=== PATIENT | female | born 1960 | race Caucasian/White ===

== ENCOUNTER 2021-10-12 09:30 | Inpatient (IN) | payer BC ==
[2021-10-17] MEDS ORDERED: Midazolam HCl 2 mg/2 ml Vial ONE ×2 (10:29→11:23)
[2021-10-17] MEDS ORDERED: Fentanyl 100 MCG/2 ML VIAL ONE ×5 (10:30→15:01)
[2021-10-17] MEDS ORDERED: Scopolamine 1.5 mg/72 hour Patch ONE (10:37)
[2021-10-17] MEDS ORDERED: cefOXitin 2 GM VIAL ONE (11:53)
[2021-10-17] MEDS ORDERED: Sodium Chloride 0.9% 100 ML ONE (11:53)
[2021-10-17] MEDS ORDERED: Glycopyrrolate 0.2 MG/ML 5 ML SYRINGE ONE (11:56)
[2021-10-17] MEDS ORDERED: Ondansetron PF 4 MG/2 ML Vial ONE (11:56)
[2021-10-17] MEDS ORDERED: Lidocaine 1% PF 5 ML VIAL ONE (11:56)
[2021-10-17] MEDS ORDERED: PHENYLEPHRINE-NS 100 MCG/ML 10 ML SYRINGE ONE (11:56)
[2021-10-17] MEDS ORDERED: Dexamethasone 20 MG/5 ML VIAL ONE (11:56)
[2021-10-17] MEDS ORDERED: Rocuronium Bromide 10 MG/ML (10ML VIAL) ONE (11:56)
[2021-10-17] MEDS ORDERED: PROPOFOL 200 MG/20 ML VIAL ONE (11:56)
[2021-10-17] MEDS ORDERED: Bupivacaine HCl 0.5%/Epinephrine 1:200,000/PF 30 ml Vial ONE (11:56)
[2021-10-17] MEDS ORDERED: Meperidine HCl/PF 25 MG/ML VIAL SLOW IVP PRN (13:07)
[2021-10-17] MEDS ORDERED: Promethazine HCl 25 MG/ML VIAL IM PRN ×2 (13:07→13:58)
[2021-10-17] MEDS ORDERED: Promethazine HCl 25 MG/ML VIAL IVPB PRN (13:07)
[2021-10-17] MEDS ORDERED: Ondansetron HCl/PF 4 MG/2 ML Vial IVP PRN (13:07)
[2021-10-17] MEDS ORDERED: Ondansetron PF 4 MG/2 ML Vial IVP PRN (13:58)
[2021-10-17] MEDS ORDERED: Acetaminophen 325 MG TAB PO PRN (13:58)
[2021-10-17] MEDS ORDERED: hydrALAZINE 20 MG/ML VIAL SLOW IVP PRN (13:58)
[2021-10-17] MEDS: D5 1/2 NS w/20 mEq KCL 1,000 ML IV SCH (15:42)
[2021-10-17 15:50] VITALS: BMI 23.1
[2021-10-17] MEDS: diphenhydrAMINE 25 MG CAP PO PRN (17:31)
[2021-10-17] MEDS: Famotidine/PF 20 mg/2ml Vial SLOW IVP SCH (19:59)
[2021-10-17] MEDS: cefOXitin Sodium 1 GM in Sodium Chloride 0.9% 100 ML IVPB SCH (19:59)
[2021-10-17] MEDS: Famotidine 20 MG TAB PO SCH (20:22)
[2021-10-18] MEDS: D5 1/2 NS w/20 mEq KCL 1,000 ML IV SCH (02:09)
[2021-10-18] MEDS: Fentanyl 100 MCG/2 ML VIAL SLOW IVP PRN ×2 (03:11→08:34)
[2021-10-18] MEDS: cefOXitin Sodium 1 GM in Sodium Chloride 0.9% 100 ML IVPB SCH (03:53)
[2021-10-18] MEDS: diphenhydrAMINE 25 MG CAP PO PRN ×2 (03:57→21:33)
[2021-10-18 05:17] LABS: #Lymphocytes 1.3 thou/uL (1.20-3.40); #Monocytes 0.7 thou/uL (0.11-0.59); #Neutrophils 6.2 thou/uL (1.40-6.50); %Basophils 0.4 % (0.0-1.0); %Eosinophils 0.1 % (0.0-10.0); %Lymphocytes 15.2 % (21.0-51.0); %Monocytes 8.6 % (0.0-10.0); %Neutrophils 75.7 % (42.0-75.0); Hemoglobin 12.2 g/dL (12.0-16.0); Mean Corpuscular HGB CONC 34.7 g/dL (32.0-36.0); Mean Corpuscular Hemoglobin 33.6 pg (27.0-31.0); Mean Corpuscular Volume 96.7 fL (78.0-98.0); Mean Platelet Volume 6.9 fL (7.4-10.4); Platelet Count 208 thou/uL (130-400); RBC Distribution Width 11.5 % (11.5-14.5); Red Blood Cell (RBC) Count 3.64 mill/uL (4.20-5.40); White Blood Cell (WBC) Count 8.2 thou/uL (4.8-10.8)
[2021-10-18 05:38] LABS: Anion Gap 8 mmol/L (10-20); BUN (Urea Nitrogen) 8 mg/dL (9.8-20.1); Calc. Creatinine Clearance 67 mL/min (70-130); Calcium 8.5 mg/dL (7.8-10.44); Carbon Dioxide 24 mmol/L (23-31); Chloride 107 mmol/L (98-107); Glucose 108 mg/dL (80-115); Potassium 4.4 mmol/L (3.5-5.1); Sodium 135 mmol/L (136-145)
[2021-10-18] MEDS: Famotidine/PF 20 mg/2ml Vial SLOW IVP SCH ×2 (08:32→21:33)
[2021-10-18] MEDS: Enoxaparin Sodium 40 MG/0.4 ML SYRINGE SC SCH (08:33)
[2021-10-18] MEDS: Famotidine 20 MG TAB PO SCH ×2 (08:33→21:33)
[2021-10-18] MEDS: HYDROcodone/Acetaminophen 7.5/325 mg Tablet PO PRN ×3 (10:43→19:38)
[2021-10-19] MEDS: HYDROcodone/Acetaminophen 7.5/325 mg Tablet PO PRN ×3 (04:26→15:12)
[2021-10-19] MEDS: Enoxaparin Sodium 40 MG/0.4 ML SYRINGE SC SCH (08:02)
[2021-10-19] MEDS: Famotidine 20 MG TAB PO SCH (08:02)
[2021-10-19] MEDS: Famotidine/PF 20 mg/2ml Vial SLOW IVP SCH (08:09)
[2021-10-19 11:54] VITALS: BP 120/74; TEMP 98.4
== END 2021-10-19 15:50 | disposition home or self-care (01) | DRG 331 ==
LOC: SURG A 10-17 09:42 → SJJU 10-17 15:30
PROVIDERS: ADMIT Surgery; ATTEND Surgery
PROC: 0DBG4ZZ Excision of Left Large Intestine, Percutaneous Endoscopic Approach (ICD-10-PCS; principal; 2021-10-17)
DX: K57.32 Diverticulitis of large intestine without perforation or abscess without bleeding (principal); Z20.822 Contact with and (suspected) exposure to COVID-19; Z79.899 Other long term (current) drug therapy; Z88.5 Allergy status to narcotic agent
CPT/HCPCS: 36415; 36416; 80048; 85025; 88307; A4649; J0694; J1100; J1650; J2250; J2405; J2704; J3010; J3480; J3490; S0028

== ENCOUNTER 2021-10-12 09:35 | Outpatient (CLI) | payer BC ==
[2021-10-12 11:04] LABS: Anion Gap 13 mmol/L (10-20); BUN (Urea Nitrogen) 18 mg/dL (9.8-20.1); Calc. Creatinine Clearance 0 mL/min (70-130); Calcium 9.2 mg/dL (7.8-10.44); Carbon Dioxide 26 mmol/L (23-31); Chloride 106 mmol/L (98-107); Glucose 102 mg/dL (80-115); Potassium 4.2 mmol/L (3.5-5.1); Sodium 141 mmol/L (136-145)
[2021-10-12 11:06] LABS: #Eosinphils 0.1 10x3/uL (0.0-0.5); #Monocytes 0.4 10x3/uL (0.0-1.1); #Neutrophils 1.8 10x3/uL (1.5-8.4); %Basophils 0.7 % (0.0-2.0); %Eosinophils 3.1 % (0.0-6.0); %Lymphocytes 45.6 % (18.0-47.0); %Monocytes 9.7 % (0.0-10.0); %Neutrophils 40.9 % (40.0-75.0); Hemoglobin 13.8 g/dL (12.0-15.5); Mean Corpuscular HGB CONC 33.2 g/dL (32.0-36.0); Mean Corpuscular Hemoglobin 31.9 pg (27.0-33.0); Mean Corpuscular Volume 96.1 fl (81.6-98.3); Mean Platelet Volume 9.9 fl (7.4-10.4); Platelet Count 246 10x3/uL (150-450); RBC Distribution Width 12.4 % (11.5-14.5); Red Blood Cell (RBC) Count 4.33 10x6/uL (3.90-5.03); White Blood Cell (WBC) Count 4.5 10x3/uL (3.5-10.5)
[2021-10-12 13:48] LABS: Hemoglobin A1c 5.1 % (4.0-6.0)
[2021-10-13 00:13] LABS: SARS-CoV-2 PCR by NAA Not Detected (NotDetected)
== END 2021-10-12 09:36 | disposition home or self-care (01) ==
LOC: LABBT 09:35
PROVIDERS: ATTEND Surgery
DX: Z01.818 Encounter for other preprocedural examination (principal); K57.92 Diverticulitis of intestine, part unspecified, without perforation or abscess without bleeding; Z20.822 Contact with and (suspected) exposure to COVID-19
CPT/HCPCS: 80048; 83036; 85025; 93005; 93010; U0003; U0005